=== PATIENT | female | born 1970 | race Caucasian/White ===

== ENCOUNTER → 2018-02-16 | Outpatient (CLI) | payer SELFPAY | LOC: M WHC 10:44 | DX: N92.4 Excessive bleeding in the premenopausal period (principal); D25.0 Submucous leiomyoma of uterus; D25.1 Intramural leiomyoma of uterus; N83.201 Unspecified ovarian cyst, right side; N83.202 Unspecified ovarian cyst, left side | CPT/HCPCS: 76830 ==